=== PATIENT | male | born 1985 | race Two or more races ===

== ENCOUNTER 2024-05-06 13:50 | Inpatient (IN) | payer OTHER ==
[2024-05-06 14:52] VITALS: BMI 27.3
[2024-05-06] MEDS ORDERED: NICOTINE POLACRILEX 2 MG LOZENGE BC PRN (15:33)
[2024-05-06] MEDS ORDERED: MAGNESIUM HYDROX 2400MG/30ML ORAL SUSPENSION 30 ML CUP PO PRN (15:33)
[2024-05-06] MEDS ORDERED: IBUPROFEN 400 MG TABLET (FP) PO PRN (15:33)
[2024-05-06] MEDS ORDERED: BENZOCAINE/MENTHOL (CHLORASEPTIC ) LOZENGE MM PRN (15:33)
[2024-05-06] MEDS ORDERED: NICOTINE POLACRILEX 2 MG GUM BUC PRN (15:33)
[2024-05-06] MEDS ORDERED: NALOXONE (NYS OPIOID OVERDOSE PROGRAM) 4 MG/0.1 ML SPRAY NS PRN (15:33)
[2024-05-06] MEDS ORDERED: hydrOXYzine PAMOATE 25 MG CAPSULE (FP) PO PRN (15:33)
[2024-05-06] MEDS ORDERED: LOPERAMIDE HCL 2 MG CAPSULE PO PRN (15:33)
[2024-05-06] MEDS ORDERED: MAG HYDROX/AL HYDROX/SIMETH 30 ML UNIT-DOSE CUP PO PRN (15:33)
[2024-05-06] MEDS ORDERED: BENZONATATE 200 MG CAPSULE PO PRN (15:33)
[2024-05-06] MEDS ORDERED: POLYETHYLENE GLYCOL (HEALTHYLAX) 3350 17 GM PACKET PO PRN (15:33)
[2024-05-06 19:11] LABS: EPI CELLS 2 /uL (0-25.1); HYALINE CASTS 0 /uL (0-3.1); PH,URINE 6.5 (5.0-8.0); URINE APPEARANCE CLEAR; URINE BACTERIA 5 /uL (0-1359); URINE BILIRUBIN NEGATIVE (NEGATIVE); URINE COLOR YELLOW; URINE GLUCOSE (UA) NEGATIVE (NEGATIVE); URINE KETONE NEGATIVE (NEGATIVE); URINE LEUK ESTERASE NEGATIVE (NEGATIVE); URINE NITRITE NEGATIVE (NEGATIVE); URINE PROTEIN NEGATIVE (NEGATIVE); URINE RBC 24 /uL (0-23.9); URINE UROBILINOGEN 0.2 mg/dL (0.2-1.0); URINE WBC 18 /uL (0-25.8)
[2024-05-06] MEDS: MELATONIN 5 MG TABLETS PO SCH (22:34)
[2024-05-06] MEDS: levETIRAcetam 500 MG TABLET (FP) PO SCH (22:34)
[2024-05-06] MEDS: THIAMINE 100 MG TABLET PO SCH (22:34)
[2024-05-07] MEDS: BICTEGRAV/EMTRICIT/TENOFOV (BIKTARVY) 50-200-25 MG TABLET PO SCH (07:14)
[2024-05-07] MEDS: PRENATAL VITAMINS W/ FOLIC ACID TABLET (FP) PO SCH (09:10)
[2024-05-07 11:20] LABS: HEMATOCRIT 39.7 % (35.4-49); HEMOGLOBIN 12.8 GM/dL (11.7-16.9); MCH 28.7 pg (25.7-33.7); MCHC 32.2 g/dl (32.0-35.9); MEAN CELL VOLUME 89.3 fl (80-96); MEAN PLT VOLUME 8.7 fl (7.5-11.1); PLATELET COUNT 365 10^3/uL (134-434); RBC 4.44 M/mm3 (4.00-5.60); RDW 14.7 % (11.9-15.9); WHITE BLOOD COUNT 16.7 K/mm3 (4.0-10.0)
[2024-05-07 11:43] LABS: POTASSIUM 4.4 mmol/L (3.5-5.1)
[2024-05-07 11:45] LABS: ALBUMIN 3.4 g/dl (3.4-5.0); CALCIUM 9.5 mg/dL (8.5-10.1)
[2024-05-07 11:46] LABS: BLOOD UREA NITROGEN 11.1 mg/dL (7-18)
[2024-05-07 11:49] LABS: CREATININE 0.8 mg/dL (0.55-1.3)
[2024-05-07 11:50] LABS: BILIRUBIN,TOTAL 0.2 mg/dL (0.2-1); TOT PROT 7.9 g/dl (6.4-8.2)
[2024-05-07] MEDS: IBUPROFEN 600 MG TABLET (FP) PO PRN (12:03)
[2024-05-07] MEDS: SUVOREXANT 10 MG TABLET PO PRN (21:43)
[2024-05-07] MEDS: guaiFENesin 600 MG TABLET.ER (FP) PO PRN (21:45)
[2024-05-09] MEDS ORDERED: TUBERCULIN PPD 5 TU/0.1ML VIAL ID ONE ×2 (11:24→13:09)
[2024-05-09] MEDS ORDERED: BENZOCAINE 20 % GEL TUBE MM PRN (11:41)
[2024-05-09] MEDS: BACLOFEN 10 MG TABLET (FP) PO SCH (13:27)
[2024-05-09] MEDS: TUBERCULIN PPD 5 TU/0.1ML VIAL ID ONE (13:27)
[2024-05-09] MEDS: DOXYCYCLINE HYCLATE 100 MG TABLET PO SCH (17:24)
[2024-05-09] MEDS: ACETAMINOPHEN 325 MG TABLET (FP) PO PRN (21:09)
[2024-05-14] MEDS: BICTEGRAV/EMTRICIT/TENOFOV (BIKTARVY) 50-200-25 MG TABLET PO SCH (06:37)
[2024-05-16] MEDS: FAMOTIDINE 20 MG TABLET PO ONE (17:18)
[2024-05-18 07:21] VITALS: RESP 18
[2024-05-20 06:03] VITALS: BP 114/78; PULSE 79; TEMP 98
[2024-05-20] MEDS: NALOXONE (NYS OPIOID OVERDOSE PROGRAM) 4 MG/0.1 ML SPRAY NS SCH (10:01)
== END 2024-05-20 10:24 | disposition home or self-care (01) | DRG 772 ==
LOC: YASAS 13:50 → Y3NR 17:34 → Y5N 05-09 11:23
PROVIDERS: ADMIT Allergy & Immunology; ATTEND Psychiatry & Neurology Pain Medicine
PROC: HZ42ZZZ Group Counseling for Substance Abuse Treatment, Cognitive-Behavioral (ICD-10-PCS; principal; 2024-05-06)
DX: F14.20 Cocaine dependence, uncomplicated (principal); F12.20 Cannabis dependence, uncomplicated; F17.210 Nicotine dependence, cigarettes, uncomplicated; F64.0 Transsexualism; Z21 Asymptomatic human immunodeficiency virus [HIV] infection status; G40.909 Epilepsy, unspecified, not intractable, without status epilepticus; K02.9 Dental caries, unspecified; K05.6 Periodontal disease, unspecified; M25.561 Pain in right knee; R26.89 Other abnormalities of gait and mobility; Z99.89 Dependence on other enabling machines and devices; Z86.19 Personal history of other infectious and parasitic diseases; Z59.00 Homelessness unspecified
CPT/HCPCS: 36415; 73590-TC-RT-FY; 80053; 80305; 80307; 81003; 85027; 86593; 86780; 87811; 93005; 93010; J0475